=== PATIENT | female | born 1990 | race American Indian/Alaskan Native ===

== ENCOUNTER 2018-01-23 10:47 | Emergency (ER) | payer BC ==
[2018-01-23 10:56] VITALS: BP 128/76
--- NOTE | 2018-01-23 11:33 | Emergency Department Report ---
ED General Adult HPI - General Chief complaint: Abdominal Pain Stated complaint: CHEST AND ABDOMINAL PAIN Time Seen by Provider: 01/23/18 11:28 Source: patient Mode of arrival: Ambulatory Limitations: No Limitations - History of Present Illness Initial comments: Patient is a 27-year-old [place] female who is a week and a half status post with methotrexate who is complaining of epigastric and center chest pain. Patient states that this a burning sensation and is constant and just beneath the sternum and occasionally when she says it flares up she'll get some epigastric discomfort as well. Patient states that the increased pain that goes down to her epigastrium last for approximately 5 minutes at a time and then started to subside and she constantly has the burning sensation. Patient denies any nausea vomiting cough congestion fevers or chills. Patient has been taking 800 mg Motrin since this discomfort started. - Related Data Previous Rx's Medication Instructions Recorded Last Taken Type Dicyclomine [Bentyl] 20 mg PO QID #14 tablet 01/23/18 Unknown Rx Omeprazole 20 mg PO DAILY #20 capsule. 01/23/18 Unknown Rx traMADol [Ultram] 50 mg PO Q6HR PRN #10 tablet 01/23/18 Unknown Rx Allergies Allergy/AdvReac Type Severity Reaction Status Date / Time No Known Allergies Allergy Unverified 01/23/18 10:51 ED Review of Systems ROS: Stated complaint: CHEST AND ABDOMINAL PAIN Other details as noted in HPI Comment: All other systems reviewed and negative ED Past Medical Hx - Past Medical History Previous Medical History?: No - Surgical History Past Surgical History?: No - Social History Smoking Status: Never Smoker Substance Use Type: None - Medications Home Medications: Home Medications Medication Instructions Recorded Confirmed Last Taken Type Dicyclomine [Bentyl] 20 mg PO QID #14 tablet 01/23/18 Unknown Rx Omeprazole 20 mg PO DAILY #20 capsule. 01/23/18 Unknown Rx traMADol [Ultram] 50 mg PO Q6HR PRN #10 tablet 01/23/18 Unknown Rx ED Physical Exam - General Limitations: No Limitations General appearance: alert, in no apparent distress - Head Head exam: Present: atraumatic, normocephalic - Eye Eye exam: Present: normal appearance - ENT ENT exam: Present: mucous membranes moist - Neck Neck exam: Present: normal inspection - Respiratory Respiratory exam: Present: normal lung sounds bilaterally. Absent: respiratory distress, wheezes, rales, rhonchi, chest wall tenderness, accessory muscle use, decreased breath sounds - Cardiovascular Cardiovascular Exam: Present: regular rate, normal rhythm. Absent: systolic murmur, diastolic murmur, rubs, gallop - GI/Abdominal GI/Abdominal exam: Present: soft, normal bowel sounds. Absent: distended, tenderness, guarding, rebound - Extremities Exam Extremities exam: Present: normal inspection - Back Exam Back exam: Present: normal inspection - Neurological Exam Neurological exam: Present: alert, oriented X3 - Psychiatric Psychiatric exam: Present: normal affect, normal mood - Skin Skin exam: Present: warm, dry, intact, normal color. Absent: rash ED Course Vital Signs 01/23/18 10:52 Temperature 98.5 F Pulse Rate 77 Respiratory 18 Rate Blood Pressure 128/76 O2 Sat by Pulse 100 Oximetry ED Medical Decision Making - EKG Data -: EKG Interpreted by De - EKG Data Interpretation: other 01/23/18 11:30 EKG shows sinus rhythm with a rate of 65 normal axis and intervals no ST segment elevations or depressions, interpretation is 1105 - Medical Decision Making Patient most likely is having GERD type symptoms status post methotrexate and Motrin 800 use. Patient is to stop taking the Motrin 800 so restarted on meds for symptomatic relief. Critical care attestation.: If time is entered above; I have spent that time in minutes in the direct care of this critically ill patient, excluding procedure time. ED Disposition Clinical Impression: GERD (gastroesophageal reflux disease) Qualifiers: Esophagitis presence: with esophagitis Qualified Code(s): K21.0 - Gastro- esophageal reflux disease with esophagitis Gastritis Qualifiers: Gastritis type: other gastritis Chronicity: acute Gastritis bleeding: without bleeding Qualified Code(s): K29.00 - Acute gastritis without bleeding Disposition: -01 TO HOME OR SELFCARE Is pt being admited?: No Does the pt Need Aspirin: No Condition: Stable Instructions: Abdominal Pain (ED), Gastroesophageal Reflux Disease (ED) Additional Instructions: Please refrain from taking Motrin 800 until symptoms improve Prescriptions: Dicyclomine [Bentyl] 20 mg PO QID #14 tablet Omeprazole 20 mg PO DAILY #20 capsule. traMADol [Ultram] 50 mg PO Q6HR PRN #10 tablet PRN Reason: Pain Referrals: PRIMARY CARE, [Primary Care Provider] - 3-5 Days
== END 2018-01-23 11:43 | disposition home or self-care (01) ==
LOC: ED 10:47
DX: K21.0 Gastro-esophageal reflux disease with esophagitis (principal); K29.00 Acute gastritis without bleeding
CPT/HCPCS: 93005; 93010; 99282

== ENCOUNTER 2019-09-15 14:39 | Emergency (ER) | payer BC, MEDICAID, OTHER ==
[2019-09-15 14:59] VITALS: BP 130/66
--- NOTE | 2019-09-15 15:01 | Emergency Department Report ---
Chief Complaint: Urogenital-Female Stated Complaint: pelvic pain Time Seen by Provider: 09/15/19 15:00 - HPI History of Present Illness: Ms. Monroy is a 29 yo female who presents with one year of pelvic pain and vaginal discharge. Normal STD testing at [facility] 2 weeks ago. Given referral to [facility]. MSE completed. - Exam Vital Signs: Vital Signs 09/15/19 14:58 Temperature 97.9 F Pulse Rate 82 Respiratory 16 Rate Blood Pressure 130/66 O2 Sat by Pulse 98 Oximetry MSE screening note: Focused history and physical exam performed. Due to findings the following was ordered: ED Disposition for MSE Clinical Impression: Encounter for medical screening examination Disposition: Z- MED SCREENING EXAM-LEFT Is pt being admited?: No Does the pt Need Aspirin: No Condition: Stable Referrals: DARREN MARS MD [Staff Physician] - 3-5 Days
== END 2019-09-15 15:30 | disposition left against medical advice (07) ==
LOC: ED 14:39
DX: N89.8 Other specified noninflammatory disorders of vagina (principal)
CPT/HCPCS: 99281